=== PATIENT | male | born 1995 | race Two or more races ===

== ENCOUNTER 2021-01-23 05:10 | Emergency (ER) | payer SELFPAY ==
[~2021-01-23] VITALS: Ht 172.7 cm; Wt 100.0 kg
[2021-01-23 05:54] VITALS: BP 144/91
[2021-01-23] MEDS ORDERED: LIDOCAINE 1% Multi-Dose 20 ML VIAL. INJ ONE (06:30)
[2021-01-23] MEDS ORDERED: AMOXICILLIN/K CLAV 875/125MG TABLET. PO ONE (06:30)
[2021-01-23] MEDS ORDERED: TETANUS AND DIPHTHERIA TOX/PF 0.5 ML DISP.SYRIN. VAX IM ONE (06:30)
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
[2021-01-23] MEDS ORDERED: AMOX1TAB61 PO (07:24)
--- NOTE | 2021-01-23 07:34 | RAD ---
XR HAND_RIGHT 3 VIEWS DATE: 01/23/2021 6:36 AM INDICATION: laceration over R middle finger, eval for fx, foreign body COMPARISON: None. FINDINGS: Bones: There is no evidence of acute fracture or dislocation. Joints: The joint spaces are normal. Miscellaneous: No radiopaque foreign bodies. IMPRESSION: No acute fracture or radiopaque foreign body. Electronically signed by: Som Morales MD (01/23/2021 7:32 AM) [facility]
== END 2021-01-23 07:59 | disposition home or self-care (01) ==
LOC: ER 05:10
DX: S61.212A Laceration without foreign body of right middle finger without damage to nail, initial encounter (principal); Y28.8XXA Contact with other sharp object, undetermined intent, initial encounter; Y93.89 Activity, other specified; Y92.89 Other specified places as the place of occurrence of the external cause; Y99.8 Other external cause status
CPT/HCPCS: 12001; 73130; 90471; 90714; 99283; J3490

== ENCOUNTER 2021-01-25 13:09 | Inpatient (IN) | payer SELFPAY ==
[~2021-01-25] VITALS: Ht 172.7 cm; Wt 108.9 kg
[~2021-01-25 13:09] MED LIST: AMOX1TAB61 PO
[2021-01-25] MEDS ORDERED: cefTRIAXone IV Push 1 GM VIAL. IVP ONE (13:30)
[2021-01-25 14:00] LABS: BASO # 0.1 x10^3/uL (0.0-0.2); BASO % 1 % (0-3); EOS # 0.4 x10^3/uL (0.0-0.7); EOS % 4 % (0-3); HEMATOCRIT 47.8 % (39.0-53.0); HEMOGLOBIN 16.4 g/dL (13.0-17.5); LYMPH # 2.1 x10^3/uL (1.0-4.8); LYMPH % 22 % (24-48); MEAN CORPUSCULAR HEMOGLOBIN 32 pg (25-35); MEAN CORPUSCULAR HGB CONC 34 g/dL (31-37); MEAN CORPUSCULAR VOLUME 92 fL (79-100); MONO # 0.9 x10^3/uL (0.0-1.1); MONO % 9 % (0-9); NEUT # 6.1 x10^3/uL (1.8-7.7); NEUT % 64 % (31-73); PLATELET COUNT 249 x10^3/uL (140-400); RED BLOOD COUNT 5.21 x10^6/uL (4.30-5.70); RED CELL DISTRIBUTION WIDTH 13.8 % (11.5-14.5); WHITE BLOOD COUNT 9.5 x10^3/uL (4.0-11.0)
[2021-01-25] MEDS ORDERED: VANCOMYCIN 2 GM in IV NORMAL SALINE 500ML BAG 500 ML IV ONE (14:00)
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
[2021-01-25 14:41] LABS: CALCIUM 8.8 mg/dL (8.5-10.1); CREATININE 0.8 mg/dL (0.7-1.3); GFR 118.8; POTASSIUM 3.8 mmol/L (3.5-5.1)
[2021-01-25 14:47] LABS: ALBUMIN 3.6 g/dL (3.4-5.0); ALBUMIN/GLOBULIN RATIO 0.8 (1.0-1.7); C-REACTIVE PROTEIN 6.2 mg/L (0-3.3); TOTAL BILIRUBIN 0.7 mg/dL (0.2-1.0)
--- NOTE | 2021-01-25 15:17 | RAD ---
AP, lateral, and oblique views of the right hand were performed. History: Failed outpatient antibiotic therapy after laceration, evaluate for gangrene Comparison: none. No fracture or dislocation is seen. The joint spaces are normal in appearance. No significant soft tissue swelling is seen. No obvious subcutaneous gas or bony erosion is identified. Electronically signed by: James Gutierrez MD (01/25/2021 3:15 PM) [facility]
[2021-01-25] MEDS: VANCOMYCIN PER PHARMACY MC PRN (17:02)
--- NOTE | 2021-01-25 17:03 | NUR ---
Pharmacy Vancomycin Dosing Note S:Consulted to monitor and dose vancomycin started 01/25/21. O:BALAJINEVILLE Willis is a 25 year old M with Empiric /BITES Height: 5 feet, 8 inches Weight: 104.0 kg [place] Body Weight: 68.40 Adjusted Body Weight: 82.64 Dosing Weight: Actual Other Antibiotics: LABS: Last BUN: 11 Last Creatinine: 0.8 Creatinine Clearance: 166 mL/min Last WBC: 9.5 Last Procalcitonin: Tmax (past 24 hours): 98.7 Microbiology: I/O: Drug Levels: Last level: on at Last dose given 01/25/21 at 1400 Vancomycin Dosing: Loading Dose: 2000 mg x1 Dosing Weight: Actual Target Trough: 10-20 A: Based on: WEIGHT AND RENAL FUNCTION, VANCOMYCIN 2GM IV BOLUS GIVEN, P: 1. Begin Vancomycin 1500 mg IV q8h 2. Follow up Trough level on 01/26/21 at 1330 3. Pharmacy will continue to monitor, follow and adjust therapy as needed. [facility], 01/25/21 0839
[2021-01-25] MEDS ORDERED: PIP/TAZO PER PHARMACY MC PRN (17:15)
[2021-01-25 17:34] VITALS: BP 118/74
--- NOTE | 2021-01-25 18:25 | NUR ---
Pt arrived on unit from ED at approx 1645 by wheelchair via ED staff. POC/orders reviewed. Pt and Mackenzie, mother updated on care plan. Will assume care of this pt.
[2021-01-25] MEDS: PIPERACILLIN/TAZOBACTAM 3.375 GM in IV NORMAL SALINE 50ML 50 ML IV SCH (18:41)
[2021-01-25 19:00] VITALS: BP 118/46
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
[2021-01-25] MEDS: ENOXAPARIN 40 MG/0.4 ML SYRINGE. SQ SCH (19:40)
[2021-01-25] MEDS: VANCOMYCIN 1.5 GM in IV NORMAL SALINE 500ML BAG 500 ML IV SCH (21:56)
[2021-01-25 23:00] VITALS: BP 110/57
[2021-01-26] MEDS: PIPERACILLIN/TAZOBACTAM 3.375 GM in IV NORMAL SALINE 50ML 50 ML IV SCH ×4 (00:09→17:44)
[2021-01-26 03:00] VITALS: BP 112/52
[2021-01-26] MEDS: VANCOMYCIN 1.5 GM in IV NORMAL SALINE 500ML BAG 500 ML IV SCH ×3 (05:55→22:13)
[2021-01-26 07:00] VITALS: BP 129/99
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
[2021-01-26 11:00] VITALS: BP 119/66
[2021-01-26 14:47] LABS: VANC TR 14.2 mcg/mL (10.0-20.0)
[2021-01-26] MEDS: VANCOMYCIN PER PHARMACY MC PRN (15:12)
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
[2021-01-26 15:24] VITALS: BP 145/89
--- NOTE | 2021-01-26 15:45 | NUR ---
Wound Care Pt seen for R middle finger laceration. Laceration is [employer], sutures intact and visible, no periwound redness, fluctuance or drainage. Wound cleaned with chloroprep swab and painted with Betadine, left [employer]. Recommend current treatment daily.
[2021-01-26] MEDS: ENOXAPARIN 40 MG/0.4 ML SYRINGE. SQ SCH (17:44)
[2021-01-26 19:00] VITALS: BP 139/94
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
[2021-01-26] MEDS: LACTOBACILLUS RHAMNOSUS GG 1 CAPSULE. PO SCH (22:13)
[2021-01-26 23:00] VITALS: BP 153/101
[2021-01-27] MEDS: PIPERACILLIN/TAZOBACTAM 3.375 GM in IV NORMAL SALINE 50ML 50 ML IV SCH ×3 (01:03→11:42)
[2021-01-27 03:00] VITALS: BP 153/78
[2021-01-27] MEDS: VANCOMYCIN 1.5 GM in IV NORMAL SALINE 500ML BAG 500 ML IV SCH ×2 (06:07→14:35)
[2021-01-27 07:00] VITALS: BP 128/69
[2021-01-27 07:34] LABS: BASO % 0 % (0-3); EOS # 0.4 x10^3/uL (0.0-0.7); EOS % 4 % (0-3); HEMATOCRIT 45.2 % (39.0-53.0); HEMOGLOBIN 15.4 g/dL (13.0-17.5); LYMPH # 2.5 x10^3/uL (1.0-4.8); LYMPH % 21 % (24-48); MEAN CORPUSCULAR HEMOGLOBIN 32 pg (25-35); MEAN CORPUSCULAR HGB CONC 34 g/dL (31-37); MEAN CORPUSCULAR VOLUME 93 fL (79-100); MONO % 9 % (0-9); NEUT # 7.5 x10^3/uL (1.8-7.7); NEUT % 65 % (31-73); PLATELET COUNT 223 x10^3/uL (140-400); RED BLOOD COUNT 4.85 x10^6/uL (4.30-5.70); RED CELL DISTRIBUTION WIDTH 13.8 % (11.5-14.5); WHITE BLOOD COUNT 11.5 x10^3/uL (4.0-11.0)
[2021-01-27 08:28] LABS: ALBUMIN/GLOBULIN RATIO 0.8 (1.0-1.7); C-REACTIVE PROTEIN 2.2 mg/L (0-3.3); CALCIUM 8.5 mg/dL (8.5-10.1); GFR 91.8; POTASSIUM 3.5 mmol/L (3.5-5.1); TOTAL BILIRUBIN 0.3 mg/dL (0.2-1.0)
[2021-01-27] MEDS: LACTOBACILLUS RHAMNOSUS GG 1 CAPSULE. PO SCH (08:45)
[2021-01-27] MEDS: VANCOMYCIN PER PHARMACY MC PRN (10:18)
[2021-01-27 11:00] VITALS: BP 124/58
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
[2021-01-27] MEDS ORDERED: DOXY100C3 PO (13:15)
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
[2021-01-27 15:00] VITALS: BP 121/63
--- NOTE | 2021-01-27 18:07 | NUR ---
Pt left unit at 1800 by ambulation via private vehicle. Pt's IV removed without complications, VSS. Discharge instructions discussed with pt, additional concerns addressed.
== END 2021-01-27 18:09 | disposition home or self-care (01) | DRG 605 ==
LOC: ER 13:09 → 5 NORTH 15:35
PROVIDERS: ADMIT Internal Medicine; ATTEND Internal Medicine
PROC: 0HQFXZZ Repair Right Hand Skin, External Approach (ICD-10-PCS; principal; 2021-01-25)
DX: S61.212A Laceration without foreign body of right middle finger without damage to nail, initial encounter (principal); L03.113 Cellulitis of right upper limb; L08.9 Local infection of the skin and subcutaneous tissue, unspecified; Z20.822 Contact with and (suspected) exposure to COVID-19; Z82.49 Family history of ischemic heart disease and other diseases of the circulatory system; Z87.891 Personal history of nicotine dependence; R74.01 Elevation of levels of liver transaminase levels; X58.XXXA Exposure to other specified factors, initial encounter; Y93.89 Activity, other specified; Y92.89 Other specified places as the place of occurrence of the external cause; Y99.8 Other external cause status
CPT/HCPCS: 36415; 73130; 80053; 80202; 85025; 85651; 86140; 87040; 87426; 96365; 96366; J0696; J1650; J2543; J3370; J7040; U0003; U0005; 99285-25; G0378